=== PATIENT | female | born 1980 ===

== ENCOUNTER 2024-11-12 08:59 | Day surgery (SDC) | payer BC ==
[2024-11-12] MEDS ORDERED: propofoL 500 MG/50 ML 50 ML ONE (09:48)
[2024-11-12] MEDS: Lactated Ringers 1,000 ML IV SCH (09:55)
== END 2024-11-12 12:20 | disposition home or self-care (01) ==
LOC: MW.SDS 08:59 → EEVIPCON 10:30 → MW.SDS 12:20
PROVIDERS: ATTEND Surgery
DX: Z12.11 Encounter for screening for malignant neoplasm of colon (principal); K63.5 Polyp of colon; K22.89 Other specified disease of esophagus; K44.9 Diaphragmatic hernia without obstruction or gangrene; R13.10 Dysphagia, unspecified; Z91.013 Allergy to seafood; Z80.0 Family history of malignant neoplasm of digestive organs; Z87.891 Personal history of nicotine dependence; Z79.899 Other long term (current) drug therapy
CPT/HCPCS: 43239; 45380; 81025; J2003; J2704; J7120; 00813